=== PATIENT | male | born 2000 | race Two or more races ===

== ENCOUNTER 2020-04-17 16:42 | Outpatient (REF) | payer MEDICAID, SELFPAY | END 2020-04-17 16:43 | disposition home or self-care (01) | LOC: HO.LAB 16:42 | PROVIDERS: Visit Provider Internal Medicine | DX: Z20.828 Contact with and (suspected) exposure to other viral communicable diseases (principal) | CPT/HCPCS: C9803; U0003 ==

== ENCOUNTER 2021-04-08 08:10 | Emergency (ER) | payer MEDICAID, SELFPAY ==
--- NOTE | ~2021-04-08 | CT_ITS ---
EXAMINATION: CT ABDOMEN AND PELVIS WITH CONTRAST CLINICAL INFORMATION: Right lower quadrant abdominal pain COMPARISON: None TECHNIQUE: Multidetector volumetric images were obtained from the superior aspect of the liver through the pubic symphysis following administration 85 mL of Omnipaque 350 intravenous contrast. Sagittal and coronal reformatted images were obtained on the technologist's workstation. Oral contrast: No This CT examination was performed using dose optimization techniques as appropriate, variously including the following: *Automated exposure control *Adjustment of mA and/or kV according to patient size (this includes techniques or standardized protocols for targeted exams where dose is matched to indication/reason for exam; i.e. extremities or head) *Use of iterative reconstruction technique DLP: 429 mGy-cm FINDINGS: LUNG BASES: The visualized lung bases are unremarkable. LIVER, GALLBLADDER, AND BILIARY TREE: The liver is normal in size, shape, and attenuation. No focal hepatic lesion or biliary ductal dilatation is present. The gallbladder is unremarkable with no evidence of radiopaque gallstones, gallbladder wall thickening, or obvious pericholecystic inflammatory changes. PANCREAS: Unremarkable. SPLEEN: Unremarkable. ADRENAL GLANDS: Unremarkable. KIDNEYS AND URETERS: The kidneys are normal in size, shape, and attenuation. No hydronephrosis, hydroureter, or calculi seen. No perinephric stranding. BLADDER: Normally distended bladder with circumferential wall thickening. GASTROINTESTINAL TRACT: The small and large bowel are unremarkable. The appendix is unremarkable. ABDOMINAL WALL: No significant hernia is appreciated. LYMPH NODES: Normal. VASCULAR: Unremarkable. PELVIC VISCERA: The prostate and seminal vesicles are unremarkable. OSSEOUS STRUCTURES: No acute or suspicious osseous abnormality. CT/CT abdomen pelvis w con IMPRESSION: Normal appendix. Circumferential bladder wall thickening. Correlate for cystitis. Fleischner guidelines were followed.
[2021-04-08 08:29] VITALS: BP 117/71; PULSE 100; RESP 18; TEMP 36.6; O2SAT 99; BMI 24.4
[2021-04-08 09:01] LABS: MANUAL DIFF FLAG NO
[2021-04-08] MEDS: ondansetron HCL 4 MG/2 ML VIAL IVPUSH (09:02)
[2021-04-08] MEDS: 0.9 % Sodium Chloride 1,000 ML 999 ML IVCONT (09:02)
[2021-04-08] MEDS: Ketorolac Tromethamine 15 MG/ML VIAL IVPUSH (09:02)
[2021-04-08 09:03] LABS: Appearance Urine CLEAR; Basophils Percent Auto 0.4 % (0-2); Color Urine YELLOW; Eosinophils Absolute Auto 0.2 X10*3/uL (0.0-0.4); Eosinophils Percent Auto 2.7 % (0-4); Glucose Urine UA NEG (NEG); Hematocrit 46.1 % (42.0-52.0); Hemoglobin 14.3 g/dl (14.0-18.0); Imm Gran Abs Auto 0.02 X10*3/uL (0.00-0.03); Imm Gran Pct Auto 0.3 % (0.0-0.4); Leukocyte Esterase Urine NEG (NEG); Lymphocytes Absolute Auto 1.4 X10*3/uL (1.2-4.9); Lymphocytes Percent Auto 19.2 % (20-40); Mean Corpuscular Hemoglobin 22.7 pg (27.0-33.0); Mean Corpuscular Volume 73.3 fL (80.0-98.0); Mean Platelet Volume 11.9 fL (9.4-12.4); Monocytes Absolute Auto 0.5 X10*3/uL (0.1-1.2); Monocytes Percent Auto 6.3 % (2-11); Neutrophils Absolute Auto 5.2 x10*3/uL (2.0-8.3); Neutrophils Percent Auto 71.1 % (45-73); Nitrite Urine NEG (NEG); PH 6.5 (5.0-8.0); Platelet Count 270 X10*3/uL (160-400); Red Blood Count 6.29 X10*6/uL (4.60-5.80); Red Cell Distribution Width 14.8 % (11.0-16.0); Specific Gravity - Urine 1.025 (1.005-1.025); Urine Blood NEG (NEG); Urine Ketones NEG (NEG); Urine Protein NEG (NEG-TRACE); White Blood Count 7.3 X10*3/uL (4.8-10.8)
[2021-04-08 09:20] LABS: Alanine Aminotransferase 38 U/L (0-40); Albumin Level 4.7 g/dL (3.5-5.0); Alkaline Phosphatase 88 U/L (39-117); Anion Gap 12 (12-20); Aspartate Amino Transferase 29 U/L (5-37); Bilirubin Direct 0.4 mg/dL (0.0-0.5); Blood Urea Nitrogen 9 mg/dL (9-16); Carbon Dioxide 27 mmol/L (22-29); Chloride 107 mmol/L (96-108); Creatinine Clr Calc Pharmacy 112.1; Estimated Glomerular Filt Rate > 60; Glucose Random 105 mg/dL (60-115); Lipase 14 U/L (8-78); Potassium 4.3 mmol/L (3.3-5.1); Sodium 142 mmol/L (135-145); Total Protein 7.8 g/dL (6.5-8.0)
--- NOTE | 2021-04-08 09:31 | ED_ITS ---
HPI - Abdominal Pain General Chief Complaint: Abdominal Pain Stated Complaint: ABD PRESSURE Time Seen by Provider: 04/08/21 08:45 Source: patient Mode of arrival: ambulatory History of Present Illness HPI narrative: 21-year-old male with a past medical history of migraines presenting to the ED complaining of right lower quadrant abdominal pain and nausea since yesterday. States pain initially started in left lower quadrant has not migrated to right lower quadrant, described as stabbing. Also reports occasional dysuria. Denies fever, chills, vomiting, diarrhea/constipation, flank pain, testicular/scrotal pain MD elicited complaint: abdominal pain Pertinent past history: none Onset (ago): day(s) Related Data Allergies Allergy/AdvReac Type Severity Reaction Status Date / Time No Known Allergies Allergy Unverified 01/16/20 17:24 Review of Systems Review of Systems Constitutional: No Fever, No Chills, No Fatigue, No Malaise ENT/Mouth: No Ear Pain, No Nasal Congestion, No sore throat Eyes: No Eye Pain, No Swelling, No Vision Changes Cardiovascular: No Chest Pain, No SOB, No Edema, No Palpitations Respiratory: No Cough, No Dyspnea Gastrointestinal: + Nausea, No Vomiting, No Diarrhea, No Constipation, + Abdominal pain Genitourinary: + Dysuria, No Urinary Frequency, No Hematuria,No Flank Pain Musculoskeletal: No joint pain, No Myalgias, No Joint Swelling Skin: No Skin Lesions, No rash Neuro: No Weakness, No Numbness, No Dizziness, No Headache Yes all other systems are reviewed and are negative Physical Exam Vital Signs: Vital Signs: Last Vital Signs Temp 98 F 04/08/21 08:29 Pulse 100 04/08/21 08:29 Resp 18 04/08/21 08:29 BP 117/71 04/08/21 08:29 Pulse Ox 99 04/08/21 08:29 BMI result Body Mass Index 24.4 Const: General: cooperative, healthy appearing and no acute distress Or ientation/consciousness: patient oriented x3 Limitations: no limitations HENMT: Head: Yes normal to inspection Ears: hearing grossly normal bilaterally General nose exam: Normal external nose present Face and sinus: Yes normal facial exam Eyes: General: appearance normal, both eyes and all related structures EOM: EOMs intact bilaterally Neck: Neck: Yes normal visual inspection and Yes no meningeal signs Resp: Effort & Inspection: normal respiratory effort and no respiratory distress Cardio: Rate: regular rate Heart sounds: S1 normal heart sound present and S2 normal heart sound present GI: Inspection: Yes normal to inspection Palpation (GI): Soft to palpation, Tenderness to palpation present (GI) in the RLQ, no guarding and not rigid : General: Yes no CVA tenderness Back/Spine/Pelvis: Back: no CVA tenderness Skin: Rashes: no rashes Wounds: no wounds Neuro: General: patient oriented x3 and no meningeal signs Gait exam (Neuro): Normal gait present Extrem: General: Yes normal to inspection Course Course Course Narrative: -1026- No leukocytosis, H&H stable, labs otherwise unremarkable. UA negative CT abdomen pelvis w con IMPRESSION: Normal appendix. ? Circumferential bladder wall thickening. Correlate for cystitis.? ? Fleischner guidelines were followed. >> results discussed with patient including worrisome signs and symptoms and strict return precautions are needed follow-up with PCP. Patient verbalized understanding feel safe for discharge home at this time MDM - Abdominal Pain MDM Narrative Medical decision making narrative: 21-year-old male with a past medical history of migraines presenting to the ED complaining of right lower quadrant abdominal pain and nausea since yesterday. On exam vital signs stable, NAD/nontoxic, abdomen soft with RLQ TTP, no rebound or guarding, no CVAT. Concern for appendicitis. Rule out UTI. Lower concern for cholecystitis/lithiasis/pancreatitis. Low concern for diverticulitis Plan: Labs, UA, CT abdomen/pelvis, IVF, symptomatic treatment Medical Records Attestation: I reviewed the patient's medical records. Lab Data Attestation: I reviewed the patient's lab results. Result diagrams: 04/08/21 08:56 04/08/21 08:56 Labs: Lab Results 04/08/21 04/08/21 04/08/21 Range/Units 08:56 08:56 08:56 WBC 7.3 (4.8-10.8) X10*3/uL RBC 6.29 H (4.60-5.80) X10*6/uL Hgb 14.3 (14.0-18.0) g/dl Hct 46.1 (42.0-52.0) % MCV 73.3 L (80.0-98.0) fL MCH 22.7 L (27.0-33.0) pg MCHC 31.0 (31.0-36.0) g/dl RDW 14.8 (11.0-16.0) % Plt Count 270 (160-400) X10*3/uL MPV 11.9 (9.4-12.4) fL Immature Gran % (Auto) 0.3 (0.0-0.4) % Neut % (Auto) 71.1 (45-73) % Lymph % (Auto) 19.2 L (20-40) % [place] % (Auto) 6.3 (2-11) % Eos % (Auto) 2.7 (0-4) % Baso % (Auto) 0.4 (0-2) % Lymph # (Auto) 1.4 (1.2-4.9) X10*3/uL [place] # (Auto) 0.5 (0.1-1.2) X10*3/uL Eos # (Auto) 0.2 (0.0-0.4) X10*3/uL Baso # (Auto) 0.0 (0.0-0.2) X10*3/uL Abs Immat Gran (auto) 0.02 (0.00-0.03) X10*3/uL Absolute Neuts (auto) 5.2 (2.0-8.3) x10*3/uL Absolute Nucleated RBC 0.000 (0.0-0.012) X10*3/uL Nucleated RBC % (auto) 0.0 (0.0-0.2) /100WBC Sodium 142 (135-145) mmol/L Potassium 4.3 (3.3-5.1) mmol/L Chloride 107 (96-108) mmol/L Carbon Dioxide 27 (22-29) mmol/L Anion Gap 12 (12-20) BUN 9 (9-16) mg/dL Creatinine 1.10 (0.5-1.4) mg/dL Estim Creat Clear Calc 112.1 Estimated GFR > 60 Random Glucose 105 (60-115) mg/dL Calcium 10.0 (8.4-10.2) mg/dL Magnesium 2.0 (1.6-2.6) mg/dL Total Bilirubin 1.0 (0.0-1.0) mg/dL Direct Bilirubin 0.4 (0.0-0.5) mg/dL AST 29 (5-37) U/L ALT 38 (0-40) U/L Alkaline Phosphatase 88 (39-117) U/L Total Protein 7.8 (6.5-8.0) g/dL Albumin 4.7 (3.5-5.0) g/dL Lipase 14 (8-78) U/L Urine Color YELLOW Urine Appearance CLEAR Urine pH 6.5 (5.0-8.0) Ur Specific [place] 1.025 (1.005-1.025) Urine Protein NEG (NEG-TRACE) MG/DL Urine Glucose (UA) NEG (NEG) MG/DL Urine Ketones NEG (NEG) MG/DL Urine Blood NEG (NEG) Urine Nitrite NEG (NEG) Ur Leukocyte Esterase NEG (NEG) Discharge Plan Discharge Clinical Impression: Abdominal pain Patient Disposition: Home, Self-Care Instructions: Abdominal Pain (ED) Additional Instructions: Your blood work, urine, CT scan were reassuring/unremarkable today Please follow-up with your doctor Take Tylenol And Motrin at home as needed If symptoms persist or worsen, pain becomes unbearable, he developed persistent nausea/vomiting, you are unable to eat or drink please return to the emergency department Referrals: Physician,Unknown J [Primary Care Provider] - 2 days Stand Alone Forms: Work/School Release [facility] Past Medical History Attestation statement: The following information was validated with the patient. Medical History Migraine Social History Social History Advance Directives: No Advance Directives Information Provided: Yes
[2021-04-08] MEDS: iohexoL 350 MG/ML 100 ML INFUS..BTL IV (10:03)
== END 2021-04-08 10:53 | disposition home or self-care (01) ==
PROVIDERS: Physician Assistant; Emergency Provider Emergency Medicine
DX: R10.9 Unspecified abdominal pain (principal); R11.0 Nausea
CPT/HCPCS: 36415; 74177; 80048; 80076; 81003; 83690; 83735; 85025; 96361; 96374; 96375; 99283; 99284; J1885; J2405; Q9967

== ENCOUNTER 2021-05-19 09:08 | Outpatient (REF) | payer MEDICAID, SELFPAY ==
[2021-05-19 09:29] LABS: COVID-19 Test Positive (Negative)
== END 2021-05-19 09:09 | disposition home or self-care (01) ==
LOC: HO.LAB 09:08
PROVIDERS: Visit Provider Internal Medicine
DX: Z20.822 Contact with and (suspected) exposure to COVID-19 (principal)
CPT/HCPCS: 87635; C9803

== ENCOUNTER 2021-08-24 05:41 | Emergency (ER) | payer MEDICAID, SELFPAY ==
--- NOTE | 2021-08-24 06:31 | ED_ITS ---
HPI - Headache General Chief Complaint: Headache Stated Complaint: Migraine Time Seen by Provider: 08/24/21 06:30 Source: patient Mode of arrival: ambulatory Limitations: no limitations History of Present Illness MD elicited complaint: headache and migraine Pertinent past history: migraines Onset (ago): day(s) (2) Onset description: gradually and while at rest Location: left, temporal and band-like Severity: severe Quality & Timing: throbbing and intermittent Exacerbating factors: light and noise Relieving factors: rest, NSAIDs and dark room Context: occurred at rest Associated symptoms: nausea and photophobia Treatments prior to arrival: migraine medication Related Data Previous Rx's Medication Instructions Recorded thglsuduvp-prqlixsivlejp-ysvjpvyp 2 tab PO Q6H PRN #14 tab 08/24/21 50 mg-325 mg-40 mg tablet ondansetron 4 mg disintegrating 4 mg PO Q8H PRN #20 tab 08/24/21 tablet Allergies Allergy/AdvReac Type Severity Reaction Status Date / Time No Known Allergies Allergy Unverified 01/16/20 17:24 Review of Systems Review of Systems: Constitutional : No Fever, No Chills, No Fatigue ENT/Mouth : No sore throat, No Rhinorrhea Eyes: No Eye Pain, No Swelling, No Redness, pos photophobia Cardiovascular : No Chest Pain, No SOB, No Dyspnea on Exertion Respiratory : No Cough, No Sputum Gastrointestinal : pos Nausea, No Vomiting, No Diarrhea, No abdominal Pain Genitourinary : No Dysuria, No Urinary Frequency, No Hematuria, Musculoskeletal : No joint pain, No Myalgias, No Joint Swelling Skin : No Skin Lesions, No rash Neuro : No Weakness, No Numbness, No Dizziness, positive Headache Psych : No Anxiety/Panic, No Depression Heme/Lymph: No Bruising, No Bleeding,No Lymphadenopathy Endocrine : No Polyuria, No Polydipsia All other systems reviewed and are negative PMFSH Past Medical History Attestation statement: The following information was validated with the patient. Medical History Migraine Social History Social History (Updated 08/24/21 @ 06:53 by Ree Robledo DO) Alcohol intake: never Patient Tobacco Use Status: Never used Tobacco Use of substances other than those prescribed or required for medical reasons: No Advance Directives: No Advance Directives Information Provided: No Physical Exam Vital Signs: Vital Signs: Last Vital Signs Temp 97.7 F 08/24/21 06:40 Pulse 89 08/24/21 06:40 Resp 18 08/24/21 06:40 BP 122/61 08/24/21 06:40 Pulse Ox 100 08/24/21 06:40 BMI result Body Mass Index 23.7 Appearance: Alert. Oriented X3. No acute distress. Eyes: Pupils equal, round and reactive to light. Photophobic ENT: Pharynx normal. Neck: Normal inspection. Neck supple. no meningeal signs. CVS: Normal heart rate and rhythm. Pulses normal. Respiratory: No respiratory distress. Breath sounds normal. Abdomen: Soft and non-tender. Skin: Skin warm and dry. Normal skin color. Normal skin turgor. Extremities: No lower extremity edema. No calf ttp Neuro: Oriented X 3. No motor deficit. No sensory deficit. Course Course Course Narrative: patient feels much better at this time stable for DC MDM - Headache MDM Narrative Medical decision making narrative: 21 yo male with hx of migraines comes in with report of a migraine that will not go away after 2 days - gradual onset, no AC therapy, no fevers, no meningeal signs given history doubt SAH or [employer] infection - will give toradol, benadryl, magnesium and reassess. Dispo per improvement Discharge Plan Discharge Clinical Impression: Migraine Qualifiers: Migraine type: without aura Status migrainosus presence: without status migrainosus Intractability: not intractable Qualified Code(s): G43.009 - Migraine without aura, not intractable, without status migrainosus Patient Disposition: Home, Self-Care Instructions: Migraine Headache (ED) Additional Instructions: return to ED for any worsening symptoms or concerns do not mix excedrin with fioricet please talk to your doctor about a daily migraine medication to prevent headaches Prescriptions: New cutzcuuiwr-zfvwvijmsyuma-elzi 50-325-40 mg tablet 2 tab PO Q6H PRN (Reason: pain) Qty: 14 0RF Rx Instructions: do not exceed 6 tabs per 24 hrs ondansetron 4 mg tablet,disintegrating 4 mg PO Q8H PRN (Reason: nausea and vomiting) Qty: 20 0RF Stand Alone Forms: Work/School Release
[2021-08-24 06:38] VITALS: BMI 23.7
[2021-08-24 06:40] VITALS: BP 122/61; PULSE 89; RESP 18; TEMP 36.5; O2SAT 100
[2021-08-24] MEDS: Metoclopramide HCl 10 MG/2 ML VIAL IVPUSH (07:21)
[2021-08-24] MEDS: diphenhydrAMINE HCL 50 MG/ML VIAL 25 MG IVPUSH (07:21)
[2021-08-24] MEDS: Ketorolac Tromethamine 30 MG/ML VIAL IVPUSH (07:21)
[2021-08-24] MEDS: 0.9 % Sodium Chloride 1,000 ML 999 ML IV (07:23)
[2021-08-24 08:34] VITALS: BP 98/50; PULSE 94; RESP 17; TEMP 36.7; O2SAT 99
== END 2021-08-24 08:44 | disposition home or self-care (01) ==
PROVIDERS: Emergency Provider Emergency Medicine
DX: G43.009 Migraine without aura, not intractable, without status migrainosus (principal)
CPT/HCPCS: 99284; J1200; J1885; J2765

== ENCOUNTER 2021-09-16 10:02 | Outpatient (REF) | payer MEDICAID, SELFPAY ==
--- NOTE | ~2021-09-16 | XR_ITS ---
EXAMINATION: RIGHT FOOT AND RIGHT ANKLE. CLINICAL INFORMATION: Pain. COMPARISON: None TECHNIQUE: 3 views right foot and 2 views right ankle FINDINGS: Right foot: There is no visible acute fracture, dislocation or subluxation seen. There is no bony erosive changes. The soft tissues are normal. Right ankle: The ankle mortise and subtalar joints are normal. No visible acute fracture or dislocation seen. XR/XR ankle RT min 3V IMPRESSION: The soft tissues are normal. Unremarkable right foot and right ankle exam.
--- NOTE | ~2021-09-16 | XR_ITS ---
EXAMINATION: RIGHT FOOT AND RIGHT ANKLE. CLINICAL INFORMATION: Pain. COMPARISON: None TECHNIQUE: 3 views right foot and 2 views right ankle FINDINGS: Right foot: There is no visible acute fracture, dislocation or subluxation seen. There is no bony erosive changes. The soft tissues are normal. Right ankle: The ankle mortise and subtalar joints are normal. No visible acute fracture or dislocation seen. XR/XR foot RT min 3V IMPRESSION: The soft tissues are normal. Unremarkable right foot and right ankle exam.
[2021-09-16 10:21] LABS: MANUAL DIFF FLAG NO
[2021-09-16 10:47] LABS: Basophils Percent Auto 0.5 % (0-2); Eosinophils Absolute Auto 0.4 X10*3/uL (0.0-0.4); Eosinophils Percent Auto 4.4 % (0-4); Hemoglobin 14.1 g/dl (14.0-18.0); Imm Gran Abs Auto 0.03 X10*3/uL (0.00-0.03); Imm Gran Pct Auto 0.4 % (0.0-0.4); Lymphocytes Absolute Auto 1.5 X10*3/uL (1.2-4.9); Lymphocytes Percent Auto 18.1 % (20-40); Mean Corpuscular HGB Conc 31.3 g/dl (31.0-36.0); Mean Corpuscular Hemoglobin 22.7 pg (27.0-33.0); Mean Corpuscular Volume 72.5 fL (80.0-98.0); Mean Platelet Volume 12.6 fL (9.4-12.4); Monocytes Absolute Auto 0.5 X10*3/uL (0.1-1.2); Monocytes Percent Auto 6.5 % (2-11); Neutrophils Absolute Auto 5.8 x10*3/uL (2.0-8.3); Neutrophils Percent Auto 70.1 % (45-73); Platelet Count 248 X10*3/uL (160-400); Red Blood Count 6.21 X10*6/uL (4.60-5.80); Red Cell Distribution Width 15.3 % (11.0-16.0); White Blood Count 8.2 X10*3/uL (4.8-10.8)
[2021-09-16 10:58] LABS: Estimated Average Glucose 100 mg/dL; Hemoglobin A1c % 5.1 %
[2021-09-16 11:08] LABS: Alanine Aminotransferase 24 U/L (0-40); Albumin Level 4.5 g/dL (3.5-5.0); Alkaline Phosphatase 73 U/L (39-117); Anion Gap 10 (12-20); Aspartate Amino Transferase 25 U/L (5-37); Blood Urea Nitrogen 12 mg/dL (9-16); Calcium 10.2 mg/dL (8.4-10.2); Carbon Dioxide 30 mmol/L (22-29); Chloride 104 mmol/L (96-108); Cholesterol 180 mg/dL; Estimated Glomerular Filt Rate > 60; Glucose Random 111 mg/dL (60-115); HDL Cholesterol 47 mg/dL; LDL Cholesterol Calculated 120 mg/dl; Sodium 139 mmol/L (135-145); Total Protein 7.2 g/dL (6.5-8.0); Triglycerides 68 mg/dL
[2021-09-16 11:26] LABS: HIV AB/AG Nonreactive (Nonreactive); HIV Num 1 0.12 S/CO (0.00-0.99)
[2021-09-16 11:30] LABS: TSH reflex Free T4 0.65 uIU/mL (0.32-4.0); Vitamin D 25-OH Total 12.1 ng/mL (>30)
[2021-09-16 13:28] LABS: CT PCR NOT DETECTED (Not Detect.)
[2021-09-16 13:29] LABS: NG PCR NOT DETECTED (Not Detect.)
[2021-09-17 07:03] LABS: Syphilis Screen Nonreactive (Nonreactive)
== END 2021-09-16 10:03 | disposition home or self-care (01) ==
LOC: HO.XRAY 10:02
PROVIDERS: PCP Internal Medicine; Visit Provider Internal Medicine
DX: Z00.00 Encounter for general adult medical examination without abnormal findings (principal); Z11.4 Encounter for screening for human immunodeficiency virus [HIV]; Z11.3 Encounter for screening for infections with a predominantly sexual mode of transmission; M79.671 Pain in right foot; E55.9 Vitamin D deficiency, unspecified; G43.009 Migraine without aura, not intractable, without status migrainosus
CPT/HCPCS: 73610; 73630; 80053; 80061; 82306; 83036; 84443; 85025; 86780; 87389; 87491; 87591